=== PATIENT | female | born 1965 | race Caucasian/White ===

== ENCOUNTER 2021-01-21 16:01 | Emergency (ER) | payer MEDICAID ==
[~2021-01-21] VITALS: Ht 165.1 cm; Wt 85.0 kg
[2021-01-21] MEDS: KETOROLAC 30MG/ML VIAL IV STA (16:46)
[2021-01-21] MEDS: SODIUM CHLORIDE 0.9% 1,000 ML IV ONE (17:00)
[2021-01-21 17:19] LABS: BASOPHILS % 0.3 % (0.0-2.0); LYMPHOCYTES % 41.5 % (20.0-50.0); MEAN CORPUSCULAR HEMOGLOBIN 27.7 pg (28.0-32.0); MEAN CORPUSCULAR VOLUME 83.3 fL (81.0-99.0); MEAN PLATELET VOLUME 8.2 fl (7.4-10.4); MONOCYTES % 5.5 % (2.0-8.0); NEUTROPHILS % 50.7 % (40.0-76.0); PLATELET 282 x1000/uL (130-400); RED BLOOD CELL COUNT 5.41 mill/uL (4.2-5.4); RED CELL DISTRIBUTION WIDTH 15.1 % (11.6-14.6)
[2021-01-21 17:28] LABS: CHLORIDE 104 mEq/L (98-107)
[2021-01-21 19:29] LABS: HCG SCREEN NEGATIVE
[2021-01-21 19:39] LABS: CLARITY URINE CLEAR (CLEAR); COLOR URINE YELLOW (YELLOW); KETONES URINE NEGATIVE (NEGATIVE); LEUKOCYTE ESTERASE URINE NEGATIVE (NEGATIVE); NITRITE URINE NEGATIVE (NEGATIVE); OCCULT BLOOD URINE TRACE (NEGATIVE); PH URINE 6.5 (4.5-8.0); PROTEIN URINE NEGATIVE (NEGATIVE); SPECIFIC GRAVITY URINE 1.006 (1.005-1.030); UROBILINOGEN URINE 0.2 E.U./dL (0.2-1.0)
[2021-01-21] MEDS ORDERED: IBUP-2029 MT (19:56)
[2021-01-21 20:45] VITALS: BP 120/72
== END 2021-01-21 20:47 | disposition home or self-care (01) ==
LOC: ER 16:01
DX: K80.50 Calculus of bile duct without cholangitis or cholecystitis without obstruction (principal)
CPT/HCPCS: 36415; 76705; 80053; 81003; 83690; 84703; 85025; 93005; 96361; 96374; 99285; J1885; J7030; Z7610